=== PATIENT | male | born 1940 ===

== ENCOUNTER 2019-02-21 09:50 | Emergency (ER) | payer MEDICARE, BC ==
[2019-02-21] MEDS ORDERED: Lidocaine 2% Jelly 10 ML Urojet MUCMEM ONE (10:01)
--- NOTE | 2019-02-21 10:09 | EDM.PDOC ---
ED HPI GENERAL MEDICAL PROBLEM - General Chief Complaint: Genitourinary Problem Stated Complaint: DIFFICULTY URINATING Time Seen by Provider: 02/21/19 09:55 Source of Information: Reports: Patient History Limitations: Reports: No Limitations - History of Present Illness INITIAL COMMENTS - FREE TEXT/NARRATIVE: 78-year-old male presents to the ED with acute urinary retention. He states he last voided pretty well around midnight. This morning can get a few dribbles but is in terrible pain and feels like his bladder wants to explode. Patient has had intermittent positive acute urinary retention. He denies taking any new medications or sleep aids last night. States his bowel function has been working pretty normal. Has not noted any blood in the urine as of late . Patient is on Coumadin daily..No dysuria urgency or frequency. Has a known enlarged prostate gland. Onset: Today Onset Date: 02/21/19 Onset Time: 00:00 (Last voided fairly well at midnight. None since.) Duration: Hour(s): Location: Reports: Abdomen (Diffuse lower abdominal pain) Quality: Reports: Ache, Sharp, Stabbing Severity: Moderate (Intermittent cramping due to bladder spasms to 10) Improves with: Reports: None Worsens with: Reports: None Context: Reports: Other (Acute development of urinary retention.). Denies: Activity, Exercise, Lifting, Sick Contact, Trauma Associated Symptoms: Reports: Nausea/Vomiting. Denies: Confusion (Mild nausea.) , Chest Pain, Cough, cough w sputum, Headaches, Loss of Appetite, Malaise Treatments CONSULTANTS INTERN: Reports: Other (see below) (He did take all of his normal medications this morning. Note he is on Spiriva hand-held inhaler anterior tropia can be a potential culprit in causing which urinary retention.) Groin Pain Score (Numeric/FACES): 9 - Related Data Allergies Allergy/AdvReac Type Severity Reaction Status Date / Time No Known Allergies Allergy Verified 02/21/19 10:02 Home Meds: Home Meds Budesonide/Formoterol [Symbicort 160-4.5 Mcg Inhaler] 1 inh INH DAILY 04/26/16 [ History] Chlorthalidone 25 mg PO DAILY 04/26/16 [History] Tiotropium [Spiriva HandiHaler] 1 inh INH DAILY 04/26/16 [History] Warfarin [Coumadin] 5 mg PO ASDIRECTED 04/26/16 [History] amLODIPine [Norvasc] 10 mg PO DAILY 04/26/16 [History] atorvaSTATin [Lipitor] 40 mg PO DAILY 04/26/16 [History] Doxycycline [Vibramycin] 100 mg PO BID #24 cap 02/21/19 [Rx] Past Medical History Cardiovascular History: Reports: Afib, Hypertension Respiratory History: Reports: Other (See Below) Other Respiratory History: unsure of his dx, but states he stakes spiriva - Past Surgical History Cardiovascular Surgical History: Reports: Valve Replacement Social & Family History - Family History Cardiac: Reports: [place] Neurological: Reports: CVA - Caffeine Use Caffeine Use: Reports: Coffee Caffeine Use Comment: coffee in am - Living Situation & Occupation Living situation: Reports: Occupation: Employed ED ROS GENERAL - Review of Systems Review Of Systems: See Below Constitutional: Reports: Malaise, Decreased Appetite. Denies: Fever, Chills HEENT: Reports: Glasses, Hearing Loss (Mild hearing loss) Respiratory: Reports: Shortness of Breath, Wheezing (Occasional wheezing) Cardiovascular: Reports: Other. Denies: Chest Pain, Blood Pressure Problem, Claudication, Edema, Lightheadedness, Orthopnea Endocrine: Reports: Fatigue GI/Abdominal: Reports: Abdominal Pain (Diffuse lower abdominal pain up to his umbilicus. Most the pain is suprapubic it comes and goes although it is constant.) : Reports: Frequency, Urinary Retention (Currently acute urinary retention) Musculoskeletal: Reports: Neck Pain, Shoulder Pain, Back Pain (On occasion.), Joint Pain Skin: Reports: Bruising (Knees and hips at times bruises easily as he is on Coumadin.) Neurological: Reports: No Symptoms Psychiatric: Reports: No Symptoms Hematologic/Lymphatic: Reports: No Symptoms Immunologic: Reports: No Symptoms ED EXAM, RENAL/ - Physical Exam Exam: See Below Exam Limited By: No Limitations General Appearance: Alert, WD/WN, Moderate Distress (Very uncomfortable.) Eye Exam: Bilateral Eye: Normal Inspection Throat/Mouth: Normal Inspection, Normal Lips, Normal Teeth, Normal Oropharynx Head: Atraumatic, Normocephalic Neck: Normal Inspection, Supple, Non-Tender, Full Range of Motion. No: Carotid Bruit, Lymphadenopathy (L), Lymphadenopathy (R) Respiratory/Chest: No Respiratory Distress, Lungs Clear, Normal Breath Sounds, No Accessory Muscle Use, Chest Non-Tender Cardiovascular: Regular Rate, Rhythm, No Edema, No Gallop, No JVD, No Murmur, No Rub, Other (Clinically patient is in sinus rhythm with the occasional PAC. I did not feel that he was in atrial fibrillation.). No: Normal Peripheral Pulses GI/Abdominal: Abnormal Bowel Sounds (Bowel sounds are quiet sent throughout all 4 quadrants of the abdomen.), Other (Dullness to percussion from the pubic symphysis to the umbilicus. Bladder appears to be palpable right at the umbilicus.) (Male) Exam: Circumcised, Other (Urinary retention.) Back Exam: Normal Inspection, Decreased Range of Motion. No: CVA Tenderness (L) , CVA Tenderness (R), Muscle Spasm Extremities: Normal Inspection, Normal Range of Motion, Non-Tender Neurological: Alert, Oriented, CN II-XII Intact, Normal Cognition Psychiatric: Normal Affect, Normal Mood Skin Exam: Warm, Dry, Intact, Normal Color, No Rash Course - Vital Signs Last Recorded V/S: Last Vital Signs Temp 36.5 C 02/21/19 10:17 Pulse 88 02/21/19 10:17 Resp 15 02/21/19 10:17 BP 179/111 H 02/21/19 10:17 Pulse Ox 95 02/21/19 10:17 - Orders/Labs/Meds Orders: Active Orders 24 hr Category Date Time Status Insert Torres Catheter [Insert Urinary Catheter] [OM.PC] Care 02/21/19 10:15 Ordered Q24H Urinary Catheter Assessment [RC] ASDIRECTED Care 02/21/19 10:04 Active Abdomen 1V Flat [CR] Stat Exams 02/21/19 10:08 Taken Labs: Laboratory Tests 02/21/19 Range/Units 10:10 Urine Color Yellow (Yellow) Urine Appearance Clear (Clear) Urine pH 7.0 (5.0-8.0) Ur Specific Topping 1.020 (1.005-1.030) Urine Protein Negative (Negative) Urine Glucose (UA) Negative (Negative) Urine Ketones Negative (Negative) Urine Occult Blood Trace-intact H (Negative) Urine Nitrite Negative (Negative) Urine Bilirubin Negative (Negative) Urine Urobilinogen 0.2 (0.2-1.0) Ur Leukocyte Esterase Negative (Negative) Urine RBC 5-10 H (0-5) /hpf Urine WBC 0-5 (0-5) /hpf Ur Squamous Epith Cells 0-5 (0-5) /hpf Urine Bacteria Few (FEW) /hpf Urine Mucus Few (FEW) /hpf Meds: Medications Discontinued Medications Generic Name Dose Route Start Last Admin Trade Name Magen PRN Reason Stop Dose Admin Lidocaine HCl 10 ml 02/21/19 10:01 02/21/19 10:10 Xylocaine 2% Jelly MUCMEM 02/21/19 10:02 10 ml ONETIME ONE Administration - Radiology Interpretation Free Text/Narrative:: 78-year-old male presents to the ED with acute urinary retention. Last voided well at midnight. Has had intermittent positive urinary tension the past. Has a known enlarged prostate gland. Examination confirms bladder is distended up to the umbilicus. Dull to percussion. Bowel sounds are absent in all 4 quadrants. Plan urogenital and insertion of daily tip Torres catheter with plans to leave it in. Urinalysis will be obtained and one view of the abdomen will be obtained. - Re-Assessments/Exams Free Text/Narrative Re-Assessment/Exam: 02/21/19 10:34 feeling markedly improved after catheter placement. Urine is clear in appearance. 02/21/19 11:44 Urinalysis shows trace occult blood and 5-10 RBCs per power field but no signs of infection. KUB done shows a mild amount of stool in the cecum. He is not significantly constipated. He will follow up [facility] Friday morning to have his catheter removed and then see how he does. if he has to have the catheter replaced he will need urology follow-up. Departure - Departure Time of Disposition: 11:44 Disposition: Home, Self-Care 01 Condition: Fair Clinical Impression: Acute urinary retention - Discharge Information *PRESCRIPTION DRUG MONITORING PROGRAM REVIEWED*: Not Applicable *COPY OF PRESCRIPTION DRUG MONITORING REPORT IN PATIENT SHALONDA: Not Applicable Prescriptions: Doxycycline [Vibramycin] 100 mg PO BID #24 cap Instructions: Acute Urinary Retention, Male, [id number] Referrals: Jenn Brown [employer] [Primary Care Provider] - Forms: ED Department Discharge Additional Instructions: Evaluation the emergency room this morning in regards to acute onset of inability to pass her water called urinary retention. Happened to you once in the past. Urinalysis shows no signs of infection. It shows a few red blood cells only which is likely secondary to insertion of the Torres catheter. X-ray of the elbow shows increased stool in the cecum but not enough to call constipation. The concern is that the prostate gland may have a low-grade infection and often does not show up and a urinalysis. Treated and is therefore antibiotic doxycycline 100 mg twice daily for the next 12 days to clear up any infection in the prostate. Suggest that the Torres catheter be left in place for 3 days and then removed either here or at the clinic and see how you do. Preferably have it removed early in the morning and if you have not been able to void normally and 8 hours he would need to return to care for catheter reinsertion. - My Orders Last 24 Hours: My Active Orders 02/21/19 10:04 Urinary Catheter Assessment [RC] ASDIRECTED 02/21/19 10:08 Abdomen 1V Flat [CR] Stat 02/21/19 10:15 Insert Torres Catheter [Insert Urinary Catheter] [OM.PC] Q24H - Assessment/Plan Last 24 Hours: My Active Orders 02/21/19 10:04 Urinary Catheter Assessment [RC] ASDIRECTED 02/21/19 10:08 Abdomen 1V Flat [CR] Stat 02/21/19 10:15 Insert Torres Catheter [Insert Urinary Catheter] [OM.PC] Q24H
[2019-02-21 10:19] VITALS: BP 179/111; PULSE 88
--- NOTE | 2019-02-22 09:22 | CR ---
Abdomen: Supine view of the abdomen was obtained. Comparison: No previous study. Bowel gas pattern is normal. Calcifications are seen within the pelvis most likely representing phleboliths. Bony structures are osteopenic. Impression: 1. Findings believed to be incidental. Nothing acute is suspected on supine abdominal x-ray. Diagnostic code #2
== END 2019-02-21 12:15 | disposition home or self-care (01) ==
LOC: JD.ED 09:50
DX: R33.9 Retention of urine, unspecified (principal); I10 Essential (primary) hypertension; Z79.899 Other long term (current) drug therapy; Z79.01 Long term (current) use of anticoagulants
CPT/HCPCS: 51702; 74018; 74018-26; 81001; 99283; 99283-25

== ENCOUNTER 2024-03-24 15:35 | Emergency (ER) | payer MEDICARE, BC ==
[2024-03-24 16:04] VITALS: BP 149/84; PULSE 65
[2024-03-24 16:56] LABS: BASOPHILS PERCENT AUTO 0.2 % (0.0-1.0); HEMATOCRIT 47.4 % (42.0-52.0); HEMOGLOBIN 15.4 gm/dl (14.0-18.0); IMMATURE GRAN ABSOLUTE AUTO 0.04 K/mm3 (0.00-0.05); IMMATURE GRAN PERCENT AUTO 0.3 % (0.0-0.4); LYMPHOCYTES ABSOLUTE AUTO 0.3 K/mm3 (1.0-4.8); LYMPHOCYTES PERCENT AUTO 2.3 % (24.0-44.0); MEAN CORPUSCULAR HEMOGLOBIN 30.5 pg (28.0-32.0); MEAN CORPUSCULAR HGB CONC 32.5 g/dl (32.0-36.0); MEAN CORPUSCULAR VOLUME 93.9 fl (83.0-99.0); MEAN PLATELET VOLUME 10.3 fl (9.4-12.4); MONOCYTES ABSOLUTE AUTO 0.5 K/mm3 (0.0-0.8); NEUTROPHILS ABSOLUTE AUTO 12.3 K/mm3 (1.8-7.7); NEUTROPHILS PERCENT AUTO 93.2 % (41.0-71.0); PLATELET COUNT,PLT 170 K/mm3 (150-400); RED BLOOD CELL COUNT 5.05 M/mm3 (4.52-5.90); WHITE BLOOD CELL COUNT,WBC 13.19 K/mm3 (3.9-11.3)
[2024-03-24 17:22] LABS: A/G RATIO 1.3 (1-2); ALBUMIN 4.3 g/dl (3.4-5.0); ANION GAP 16.4 (5-15); BILIRUBIN TOTAL 0.9 mg/dL (0.2-1.0); BUN/CREATININE RATIO 17.1 (14-18); C-REACTIVE PROTEIN 0.11 mg/dL (<0.30); CALCIUM 9.7 mg/dL (8.5-10.1); CREATININE 1.7 mg/dL (0.7-1.3); EST CRCL DRUG DOSING (CG) 29.6 mL/min; POTASSIUM,K 4.4 mEq/L (3.5-5.1); PROTEIN TOTAL,TP 7.5 g/dl (6.4-8.2)
[2024-03-24 17:30] LABS: LACTIC ACID 1.9 mmol/L (0.4-2.0)
[2024-03-24 17:31] LABS: APPEARANCE,URINE CLEAR (Clear); BILIRUBIN,URINE NEGATIVE (Negative); COLOR,URINE YELLOW (Yellow); GLUCOSE,URINE NEGATIVE (Negative); KETONES,URINE 1+ (Negative); LEUKOCYTE ESTERASE,URINE 1+ (Negative); NITRITE,URINE NEGATIVE (Negative); OCCULT BLOOD,URINE NEGATIVE (Negative); PROTEIN,URINE 1+ (Negative); UROBILINOGEN,URINE 0.2 (0.2-1.0)
[2024-03-24] MEDS ORDERED: Sodium Chloride 0.9% 1,000 ML IV SCH ×2 (17:45→19:45)
[2024-03-24 17:52] LABS: RBC,URINE 0-5 /hpf (0-5); WBC,URINE 0-5 /hpf (0-5)
[2024-03-24 17:53] LABS: BACTERIA,URINE FEW /hpf (FEW); MUCUS,URINE MODERATE /hpf (FEW)
[2024-03-24 18:02] LABS: INR 2.79; PROTHROMBIN TIME 27.7 SECONDS (9.7-12.0)
[2024-03-24] MEDS: Sodium Chloride 0.9% 10 ML Syringe FLUSH PRN (18:24)
[2024-03-24] MEDS: Sodium Chloride 0.9% 1,000 ML IV SCH (18:24)
[2024-03-24] MEDS: Iopamidol 612 MG/ML 100 ML Bottle IVPUSH ONE (18:34)
[2024-03-24] MEDS: Ondansetron 4 MG/2 ML SDV IVPUSH ONE (19:37)
[2024-03-24] MEDS: Levofloxacin 500 MG Tab PO ONE (19:37)
== END 2024-03-24 20:44 | disposition home or self-care (01) ==
LOC: JD.ED 15:35
DX: R10.31 Right lower quadrant pain (principal); R19.7 Diarrhea, unspecified; R11.0 Nausea; I10 Essential (primary) hypertension; Z79.01 Long term (current) use of anticoagulants; Z79.899 Other long term (current) drug therapy
CPT/HCPCS: 36415; 74177; 80053; 81001; 83605; 83690; 85025; 85610; 86140; 87086; 96361; 96374; 99284; J2405; J3490; J7030; Q9967; A9270-GY

== ENCOUNTER 2024-03-28 14:29 | Emergency (ER) | payer MEDICARE, BC ==
[2024-03-28 16:10] LABS: BASOPHILS PERCENT AUTO 0.4 % (0.0-1.0); EOSINOPHILS PERCENT AUTO 0.1 % (0.0-6.0); HEMATOCRIT 43.2 % (42.0-52.0); HEMOGLOBIN 14.2 gm/dl (14.0-18.0); IMMATURE GRAN ABSOLUTE AUTO 0.02 K/mm3 (0.00-0.05); IMMATURE GRAN PERCENT AUTO 0.3 % (0.0-0.4); LYMPHOCYTES ABSOLUTE AUTO 0.3 K/mm3 (1.0-4.8); LYMPHOCYTES PERCENT AUTO 3.8 % (24.0-44.0); MEAN CORPUSCULAR HEMOGLOBIN 30.2 pg (28.0-32.0); MEAN CORPUSCULAR HGB CONC 32.9 g/dl (32.0-36.0); MEAN CORPUSCULAR VOLUME 91.9 fl (83.0-99.0); MEAN PLATELET VOLUME 9.8 fl (9.4-12.4); MONOCYTES ABSOLUTE AUTO 0.4 K/mm3 (0.0-0.8); MONOCYTES PERCENT AUTO 5.1 % (0.0-8.0); NEUTROPHILS ABSOLUTE AUTO 6.6 K/mm3 (1.8-7.7); NEUTROPHILS PERCENT AUTO 90.3 % (41.0-71.0); PLATELET COUNT,PLT 146 K/mm3 (150-400); WHITE BLOOD CELL COUNT,WBC 7.28 K/mm3 (3.9-11.3)
[2024-03-28 16:32] LABS: A/G RATIO 1.3 (1-2); ALBUMIN 3.9 g/dl (3.4-5.0); BILIRUBIN TOTAL 0.7 mg/dL (0.2-1.0); BUN/CREATININE RATIO 13.3 (14-18); C-REACTIVE PROTEIN 1.31 mg/dL (<0.30); CALCIUM 9.3 mg/dL (8.5-10.1); CREATININE 1.2 mg/dL (0.7-1.3); EST CRCL DRUG DOSING (CG) 41.29 mL/min; PROTEIN TOTAL,TP 6.9 g/dl (6.4-8.2)
[2024-03-28 16:35] LABS: LACTIC ACID 0.9 mmol/L (0.4-2.0)
[2024-03-28] MEDS ORDERED: Naloxone 0.4 MG/ML SDV IVPUSH PRN ×2 (16:53→20:06)
[2024-03-28] MEDS: fentaNYL 100 MCG/2 ML SDV IVPUSH ONE (17:35)
[2024-03-28] MEDS: Sodium Chloride 0.9% 10 ML Syringe FLUSH PRN (17:38)
[2024-03-28] MEDS: Iopamidol 612 MG/ML 100 ML Bottle IVPUSH ONE (19:01)
[2024-03-28 19:04] LABS: APPEARANCE,URINE CLEAR (Clear); BILIRUBIN,URINE NEGATIVE (Negative); COLOR,URINE YELLOW (Yellow); GLUCOSE,URINE NEGATIVE (Negative); KETONES,URINE 1+ (Negative); LEUKOCYTE ESTERASE,URINE NEGATIVE (Negative); NITRITE,URINE NEGATIVE (Negative); OCCULT BLOOD,URINE NEGATIVE (Negative); PH,URINE 7.5 (5.0-8.0); PROTEIN,URINE 1+ (Negative); UROBILINOGEN,URINE 0.2 (0.2-1.0)
[2024-03-28 19:16] LABS: EPITHELIAL CELLS,URINE NOT SEEN /hpf (0-5); RBC,URINE 0-5 /hpf (0-5); WBC,URINE 0-5 /hpf (0-5)
[2024-03-28 19:17] LABS: BACTERIA,URINE FEW /hpf (FEW); HYALINE CASTS,URINE 0-5 /lpf (0-5); MUCUS,URINE FEW /hpf (FEW)
[2024-03-28] MEDS: HYDROmorphone 0.5 MG/0.5 ML Syringe IVPUSH ONE (20:14)
[2024-03-28 21:33] VITALS: BP 157/76; PULSE 64
== END 2024-03-28 21:25 | disposition home or self-care (01) ==
LOC: JD.ED 14:29
DX: K40.30 Unilateral inguinal hernia, with obstruction, without gangrene, not specified as recurrent (principal); I10 Essential (primary) hypertension; I48.91 Unspecified atrial fibrillation; Z79.899 Other long term (current) drug therapy
CPT/HCPCS: 36415; 74177; 76857; 80053; 81001; 83605; 83690; 85025; 86140; 96374; 96375; 99284; J1171; J3010; J3490; Q9967